=== PATIENT | female | born 1990 | race Hispanic/Latino ===

== ENCOUNTER 2024-10-02 03:35 | Emergency (ER) | payer OTHER, SELFPAY ==
[2024-10-02] MEDS ORDERED: LIDOCAINE 1% MPF 2 ML AMPULE ONE (04:52)
[2024-10-02] MEDS ORDERED: KETOROLAC 30 MG/ML INJ ONE (04:52)
[2024-10-02] MEDS ORDERED: CEFTRIAXONE 1000 MG/VIAL ONE (04:52)
[2024-10-02] MEDS ORDERED: CODEINE 30MG/APAP 300MG TAB ONE (04:53)
[2024-10-02 05:25] LABS: Specific Gravity > 1.030 (1.005-1.030)
--- NOTE | 2024-10-02 05:37 | EDPHYS ---
Physician Documentation [facility] Name: Mallory Alejandro Age: 34 yrs Sex: Female : 1990 Arrival Date: 10/02/2024 Time: 03:35 Bed 12 Private MD: ED Physician Jose David Littlejohn HPI: 10/02 04:18 This 34 yrs old Female presents to ER via Unassigned with complaints of Jaw sp4 Pain, Toothache. 10/03 02:30 Patient presents with left upper toothache, gingival pain at the site of tooth #13 and sp4 14. MARKETING SERVICES COORDINATOR: 10/02 04:35 LMP 09/10/2024, unknown lg3 Historical: - Allergies: 04:35 No Known Allergies; lg3 - Home Meds: 04:35 None [Active]; lg3 - PMHx: 04:35 None; lg3 - PSHx: 04:35 cyst removal on neck; lg3 - Immunization history:: Adult Immunizations up to date. - Infectious Disease History:: Denies. - Social history:: Smoking status: Patient denies any tobacco usage or history of. Patient/guardian denies using alcohol, street drugs. - Family history:: not pertinent. ROS: 10/03 02:30 Constitutional: Negative for fever, chills, and weight loss, positive left upper dental sp4 pain All other systems are negative, Exam: 02:30 Constitutional: This is a well developed, well nourished patient who is awake, alert, sp4 and in no acute distress. Head/Face: Normocephalic, atraumatic. Eyes: Pupils equal round and reactive to light, extra-ocular motions intact. Lids and lashes normal. Conjunctiva and sclera are not injected. Cornea within normal limits. Periorbital areas with no swelling, redness, or edema. ENT: Nares patent. No nasal discharge, no septal abnormalities noted. Tympanic membranes are normal and external auditory canals are clear. Oropharynx with no redness, swelling, or masses, exudates, or evidence of obstruction, uvula midline. Mucous membranes moist. No signs of drainable gingival abscess. Mild periodontal disease. Overall dentition is good Neck: Trachea midline, no thyromegaly or masses palpated, and no cervical lymphadenopathy. Supple, full range of motion without nuchal rigidity, or vertebral point tenderness. Chest/axilla: Normal chest wall appearance and motion. Nontender with no deformity. No lesions are appreciated. Cardiovascular: Regular rate and rhythm with a normal S1 and S2. No gallops, murmurs, or rubs. Normal PMI, no JVD. No pulse deficits. Respiratory: Lungs have equal breath sounds bilaterally, clear to auscultation and percussion. No rales, rhonchi or wheezes noted. No increased work of breathing, no retractions or nasal flaring. Abdomen/GI: Soft, with normal bowel sounds. No distension or tympany. No guarding or rebound. No evidence of tenderness throughout. Back: No spinal tenderness. No costovertebral tenderness. Skin: Warm, dry with normal turgor. Normal color with no rashes, no lesions, and no evidence of cellulitis. MS/ Extremity: Pulses equal, no cyanosis. Neurovascular intact. Full, normal range of motion. Neuro: Awake and alert, GCS 15, oriented to person, place, time, and situation. Cranial nerves II-XII grossly intact. Motor strength 5/5 in all extremities. Sensory grossly intact. Psych: Awake, alert, with orientation to person, place and time. Behavior, mood, and affect are within normal limits Vital Signs: 10/02 04:32 BP 130 / 87; Pulse 68; Resp 16 S; Temp 98.5(O); Pulse Ox 100% on R/A; Weight 69.4 kg lg3 (R); Height 5 ft. 2 in. (R); Pain 10/10; 04:32 Body Mass Index 27.98 (69.40 kg, 157.48 cm) lg3 04:32 Pain Scale: Adult lg3 Leonardo Coma Score: 10/03 02:30 Eye Response: spontaneous(4). Motor Response: obeys commands(6). Verbal Response: sp4 oriented(5). Total: 15. MDM: 10/02 04:24 Medical screening is not applicable. sp4 10/03 02:30 Differential diagnosis: dental caries, gingivitis, dental abscess, pericoronitis. Data sp4 reviewed: vital signs, nurses notes, lab test result(s), UPT: negative. ED course: Patient stable for discharge home with medications listed below.. 10/02 04:45 Order name: Test, Urine; Complete Time: 05:34 sp4 Administered Medications: 10/02 05:26 Drug: Rocephin (cefTRIAXone) IM 1 grams IM once Route: IM; Site: left gluteus; lg3 05:47 Follow up: Response: No adverse reaction lg3 05:26 Drug: Acetaminophen-Codeine PO (300 mg-30 mg) 2 tabs PO once; RASS on ADMIN: Combtv4, lg3 Very Agttd3, Agttd2, Rstlss1, AlertClm0, Drwsy-1, Lt Sdtn-2, Mod Sdtn-3, Dp Sdtn-4, UnArsble-5 Route: PO; 05:47 Follow up: Response: No adverse reaction; Marked relief of symptoms lg3 05:27 Drug: Ketorolac IM 60 mg IM once Route: IM; Site: right gluteus; lg3 05:47 Follow up: Response: No adverse reaction; Marked relief of symptoms lg3 Disposition: 10/03 02:38 Chart complete. sp4 Disposition Summary: 10/02/24 05:37 Discharge Ordered Notes: Location: Home sp4 Problem: new sp4 Symptoms: have improved sp4 Condition: Stable sp4 Diagnosis - Dental caries, unspecified sp4 - Acute Left Upper Dental Pain sp4 - Acute Pulpitis sp4 Followup: sp4 - With: Private Physician - When: 7 - 10 days - Reason: Recheck today's complaints Discharge Instructions: - Discharge Summary Sheet sp4 - Dental Pain, [id number] sp4 Forms: - Patient Portal Instructions sp4 Prescriptions: - Cephalexin 500 mg Oral Capsule - take 1 capsule ORAL route every 6 hours for 10 days; 40 capsule; Refills: 0, sp4 Product Selection Permitted - Ibuprofen 800 mg Oral Tablet - take 1 tablet ORAL route every 8 hours As needed take with food; 30 tablet; sp4 Refills: 0, Product Selection Permitted - Tramadol 50 mg Oral tablet - take 1 tablet ORAL route every 8 hours as needed; 30 tablet; Refills: 0, sp4 Product Selection Permitted Signatures: Dispatcher [employer] Amaris Shah RN RN lg3 Jose David Littlejohn MD MD sp4
--- NOTE | 2024-10-02 05:37 | ER ---
Nurse's Notes [facility] Name: Mallory Alejandro Age: 34 yrs Sex: Female : 1990 Arrival Date: 10/02/2024 Time: 03:35 Bed 12 Private MD: Diagnosis: Dental caries, unspecified;Acute Left Upper Dental Pain ;Acute Pulpitis Presentation: 10/02 04:32 Chief complaint: Patient states: upper left sided tooth pain 1 month ago but symptoms lg3 resolved with ibuprofen. pain began again yesterday 04/25. Coronavirus screen: Client denies travel out of the [place] in the last 14 days. At this time, the client does not indicate any symptoms associated with coronavirus-19. Ebola Screen: No symptoms or risks identified at this time. Initial Sepsis Screen: Does the patient meet any 2 criteria? No. Patient's initial sepsis screen is negative. Does the patient have a suspected source of infection? No. Patient's initial sepsis screen is negative. Risk Assessment: Do you want to hurt yourself or someone else? Patient reports no desire to harm self or others. Onset of symptoms was October 01, 2024. 04:32 Method Of Arrival: Ambulatory lg3 04:32 Acuity: MARK 4 lg3 Triage Assessment: 04:35 General: Appears in no apparent distress. uncomfortable, Behavior is calm, cooperative. lg3 Pain: Complains of pain in mouth Pain does not radiate. Pain currently is 10 out of 10 on a pain scale. EENT: Reports pain in left zygomatic area and left cheek. Neuro: No deficits noted. Becerra Agitation-Sedation Scale (RASS): 0 - Alert and Calm Level of Consciousness is awake, alert, obeys commands, Oriented to person, place, time, situation. Cardiovascular: No deficits noted. Denies chest pain, shortness of breath, Capillary refill < 3 seconds Clubbing of nail beds is absent JVD is absent Patient's skin is warm and dry. Respiratory: No deficits noted. Airway is patent Respiratory effort is even, unlabored, Respiratory pattern is regular, symmetrical. GI: No deficits noted. No signs and/or symptoms were reported involving the gastrointestinal system. : No signs and/or symptoms were reported regarding the genitourinary system. Derm: No deficits noted. No signs and/or symptoms reported regarding the dermatologic system. Skin is intact, is healthy with good turgor, Skin is dry, Skin is normal, Skin temperature is warm. Musculoskeletal: No deficits noted. No signs and/or symptoms reported regarding the musculoskeletal system. Circulation, motion, and sensation intact. Range of motion: intact in all extremities. 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 - Infectious Disease History:: Denies. - Social history:: Smoking status: Patient denies any tobacco usage or history of. Patient/guardian denies using alcohol, street drugs. - Family history:: not pertinent. Screenin:38 [facility] ED Fall Risk Assessment (Adult) History of falling in the last 3 months, lg3 including since admission No falls in past 3 months (0 pts) Confusion or Disorientation No (0 pts) Intoxicated or Sedated No (0 pts) Impaired Gait No (0 pts) Mobility Assist Device Used No (0 pt) Altered Elimination No (0 pt) Score/Fall Risk Level 0 - 2 = Low Risk Oriented to surroundings, Maintained a safe environment, Educated pt \T\ family on fall prevention, incl call for assistance when getting out of bed, Assessed \T\ reinforced patient's understanding of fall precautions. Abuse screen: Denies threats or abuse. Denies injuries from another. Nutritional screening: No deficits noted. Tuberculosis screening: No symptoms or risk factors identified. Assessment: 04:37 General: see triage assessment. lg3 05:47 Reassessment: Patient appears in no apparent distress at this time. No changes from lg3 previously documented assessment. Patient and/or family updated on plan of care and expected duration. Pain level reassessed. Patient is alert, oriented x 3, equal unlabored respirations, skin warm/dry/pink. Patient states feeling better. Patient states symptoms have improved. Vital Signs: 04:32 BP 130 / 87; Pulse 68; Resp 16 S; Temp 98.5(O); Pulse Ox 100% on R/A; Weight 69.4 kg lg3 (R); Height 5 ft. 2 in. (R); Pain 10; 04:32 Body Mass Index 27.98 (69.40 kg, 157.48 cm) lg3 04:32 Pain Scale: Adult lg3 Leonardo Coma Score: 10/03 02:30 Eye Response: spontaneous(4). Motor Response: obeys commands(6). Verbal Response: sp4 oriented(5). Total: 15. ED Course: 10/02 03:40 Patient arrived in ED. gm2 04:18 Jose David Littlejohn MD is Attending Physician. sp4 04:35 Triage completed. lg3 04:35 Arm band placed on right wrist. lg3 04:38 Patient has correct armband on for positive identification. Placed in gown. Bed in low lg3 position. Call light in reach. Side rails up X 1. Client placed on continuous cardiac and pulse oximetry monitoring. NIBP monitoring applied. Door closed. Noise minimized. Warm blanket given. Pillow given. Family accompanied patient. 05:47 No provider procedures requiring assistance completed. Patient did not have IV access lg3 during this emergency room visit. Administered Medications: 05:26 Drug: Rocephin (cefTRIAXone) IM 1 grams IM once Route: IM; Site: left gluteus; lg3 05:47 Follow up: Response: No adverse reaction lg3 05:26 Drug: Acetaminophen-Codeine PO (300 mg-30 mg) 2 tabs PO once; RASS on ADMIN: Combtv4, lg3 Very Agttd3, Agttd2, Rstlss1, AlertClm0, Drwsy-1, Lt Sdtn-2, Mod Sdtn-3, Dp Sdtn-4, UnArsble-5 Route: PO; 05:47 Follow up: Response: No adverse reaction; Marked relief of symptoms lg3 05:27 Drug: Ketorolac IM 60 mg IM once Route: IM; Site: right gluteus; lg3 05:47 Follow up: Response: No adverse reaction; Marked relief of symptoms lg3 Medication: 04:37 VIS not applicable for this client. lg3 Outcome: 05:37 Discharge ordered by . sp4 05:47 Discharged to home ambulatory, with significant other, lg3 05:47 Condition: stable 05:47 Discharge instructions given to patient, Instructed on discharge instructions, follow up and referral plans. medication usage, Demonstrated understanding of instructions, follow-up care, medications, Prescriptions given X 3, 05:49 Patient left the ED. lg3 Signatures: Amaris Cesar RN RN lg3 Jose David Littlejohn MD MD sp4 Mary Carmen Velázquez gm2
[2024-10-02 14:27] VITALS: BP 130/87; TEMP 98.5; O2SAT 100
== END 2024-10-02 05:49 | disposition home or self-care (01) ==
LOC: ER 03:35
DX: K02.9 Dental caries, unspecified (principal); K04.01 Reversible pulpitis
CPT/HCPCS: 81025; J0696